=== PATIENT | male | born 1975 | race Two or more races ===

== ENCOUNTER 2023-03-03 15:52 | Emergency (ER) | payer OTHER ==
[~2023-03-03] VITALS: Ht 182.9 cm; Wt 90.7 kg
[~2023-03-03 15:52] MED LIST: OXYC1TAB9 PO; TUSSIONEX PENNKI5 ML PO
== END 2023-03-03 18:35 | disposition home or self-care (01) ==
LOC: ER 15:52
DX: S01.02XA Laceration with foreign body of scalp, initial encounter (principal); W26.8XXA Contact with other sharp object(s), not elsewhere classified, initial encounter; Y93.89 Activity, other specified; Y92.89 Other specified places as the place of occurrence of the external cause

== ENCOUNTER 2023-03-09 21:28 | Emergency (ER) | payer OTHER ==
[~2023-03-09] VITALS: Ht 182.9 cm; Wt 90.7 kg
== END 2023-03-09 22:44 | disposition home or self-care (01) ==
LOC: ER 21:29
DX: Z48.02 Encounter for removal of sutures (principal)